=== PATIENT | female | born 1955 | race Two or more races ===

== ENCOUNTER 2019-10-23 07:26 | Outpatient (CLI) | payer OTHER ==
[~2019-10-23 07:26] MED LIST: CATAFLAM50 MG; CYMBALTA60 MG; SYNTHROID75 MCG
== END 2019-10-23 07:30 | disposition home or self-care (01) ==
LOC: SONOGRAMA 07:26
DX: E04.2 Nontoxic multinodular goiter (principal)

== ENCOUNTER 2023-07-12 10:04 | Emergency (ER) | payer OTHER ==
[~2023-07-12] VITALS: Ht 152.4 cm; Wt 78.5 kg
[2023-07-12] MEDS ORDERED: COZAAR25 MG (10:35)
[2023-07-12 12:18] LABS: HEMATOCRIT 40.8 % (36.0-45.00); HEMOGLOBIN 13.8 g/dL (12.0-15.00); MEAN CELL VOLUME 91.9 fL (80.00-100.00); MEAN CORPUSCULAR HEMOGLOBIN 31.2 pg (27.00-32.0); MEAN CORPUSCULAR HGB CONC 33.9 g/dl (32.0-36.0); PLATELET COUNT 274 K/uL (150-450); RED BLOOD COUNT 4.44 M/uL (4.00-6.00); RED CELL DISTRIBUTION WIDTH 13.9 % (11.5-14.5)
[2023-07-12 12:30] LABS: CREATININE SERUM 0.68 mg/dL (0.55-1.02); GFR 86.3; POTASSIUM 4.12 mEq/L (3.5-5.1)
[2023-07-12 12:32] LABS: PH,URINE 7.5 (5.0-8.0); URINE APPEARANCE Clear; URINE BILIRRUBIN Negative (NEGATIVE); URINE BLOOD Negative; URINE COLOR Yellow; URINE GLUCOSE Negative (NEGATIVE); URINE LEUKOCYTE Negative; URINE NITRATE Negative; URINE PROTEIN Negative (NEGATIVE); URINE UROBILINOGEN 0.2 E.U./dl
[2023-07-12 12:36] LABS: URINE BACTERIA 103.3 uL (0.0-1933); URINE RBC 9.3 uL (0.0-20.8)
[2023-07-12 12:48] LABS: URINE WBC 1.6 uL (0.0-23.2)
== END 2023-07-12 15:50 | disposition home or self-care (01) ==
LOC: ER 10:05
PROVIDERS: Emergency Medicine
DX: R10.9 Unspecified abdominal pain (principal); I10 Essential (primary) hypertension; E03.9 Hypothyroidism, unspecified
CPT/HCPCS: 36415; 74177; 96365; 96366; 99284; J7030; Q9965